=== PATIENT | female | born 1940 | race African-American/Black ===

== ENCOUNTER 2018-03-22 17:30 | Emergency (ER) | payer MEDICARE, OTHER ==
[~2018-03-22] VITALS: Ht 170.2 cm; Wt 85.0 kg
[~2018-03-22 17:30] MED LIST: ACET-3161; AMLO10TA80; ATEN50TA; ATOR40TA70; BENA40TA9; FURO40TA5; GABA-531; RANI300T4; TRAM50TA3
[2018-03-22] MEDS ORDERED: METHOCARBAMOL 500MG TABLET PO ONE (21:15)
[2018-03-22] MEDS ORDERED: ACETAMINOPHEN WITH CODEINE 300/30MG TABLET PO ONE (21:15)
[2018-03-22] MEDS ORDERED: ASPI-1159 PO (22:02)
[2018-03-22] MEDS ORDERED: ATOR20TA65 PO (22:02)
[2018-03-23] MEDS ORDERED: KETOROLAC 60MG/2ML VIAL IM ONE (00:45)
[2018-03-23 01:33] VITALS: BP 141/85
== END 2018-03-23 01:34 | disposition home or self-care (01) ==
LOC: ER 18:00
DX: S00.83XA Contusion of other part of head, initial encounter (principal); S60.211A Contusion of right wrist, initial encounter; S43.401A Unspecified sprain of right shoulder joint, initial encounter; S83.91XA Sprain of unspecified site of right knee, initial encounter; S80.212A Abrasion, left knee, initial encounter; S90.812A Abrasion, left foot, initial encounter; W10.8XXA Fall (on) (from) other stairs and steps, initial encounter; Y93.89 Activity, other specified; Y92.89 Other specified places as the place of occurrence of the external cause; Z88.0 Allergy status to penicillin
CPT/HCPCS: 73030; 73110; 73562; 99284

== ENCOUNTER 2018-07-21 11:50 | Inpatient (IN) | payer MEDICARE, OTHER ==
[~2018-07-21] VITALS: Ht 170.2 cm; Wt 84.5 kg
[~2018-07-21 11:50] MED LIST changes: +ASPI-1159 PO; +ATOR20TA65 PO; -GABA-531; +GABA-531 PO; -TRAM50TA3; +TRAM50TA3 PO
[2018-07-21] MEDS ORDERED: ONDANSETRON HCL 4MG/2ML INJ IV STA (23:46)
[2018-07-21] MEDS ORDERED: MORPHINE SULFATE 4 MG/ML CPJ (NOT FOR IM USE) IV STA (23:46)
[2018-07-21] MEDS ORDERED: SODIUM CHLORIDE 0.9% 1,000 ML IV ONE (23:46)
[2018-07-22 00:36] LABS: BASOPHILS % 1.3 % (0.0-2.0); EOSINOPHILS % 2.5 % (0.0-5.0); HEMATOCRIT. 41.5 % (36.0-48.0); HEMOGLOBIN. 13.8 g/dL (12.0-16.0); MEAN CORPUSCULAR HEMOGLOBIN 30.5 pg (28.0-32.0); MEAN CORPUSCULAR VOLUME 91.9 fL (81.0-99.0); MEAN PLATELET VOLUME 8.8 fl (7.4-10.4); MONOCYTES % 8.6 % (2.0-8.0); NEUTROPHILS % 48.6 % (40.0-76.0); PLATELET 365 x1000/uL (130-400); RED BLOOD CELL COUNT 4.52 mill/uL (4.2-5.4); RED CELL DISTRIBUTION WIDTH 13.8 % (11.6-14.6)
[2018-07-22 00:39] LABS: CLARITY URINE CLOUDY (CLEAR); COLOR URINE YELLOW (YELLOW); KETONES URINE TRACE (NEGATIVE); LEUKOCYTE ESTERASE URINE 3+ (NEGATIVE); NITRITE URINE NEGATIVE (NEGATIVE); OCCULT BLOOD URINE NEGATIVE (NEGATIVE); PROTEIN URINE TRACE (NEGATIVE); SPECIFIC GRAVITY URINE 1.017 (1.005-1.030); UROBILINOGEN URINE 0.2 E.U./dL (0.2-1.0)
[2018-07-22 00:39] LABS: CHLORIDE 104 mEq/L (98-107)
[2018-07-22] MEDS ORDERED: CEFTRIAXONE 1 G PREMIX 50 ML IV ONE (02:00)
[2018-07-22] MEDS: HYDROCODONE/ACETAMINOPHEN 5/325MG TABLET PO PRN ×2 (16:06→22:19)
[2018-07-23] VITALS (14 sets, daily range): BP systolic 122–156; BP diastolic 72–91
[2018-07-23] MEDS: SODIUM CHLORIDE 0.9% 1,000 ML IV SCH ×2 (05:55→17:55)
[2018-07-23 07:09] LABS: CHLORIDE 106 mEq/L (98-107)
[2018-07-23 07:12] LABS: BASOPHILS % 1.4 % (0.0-2.0); EOSINOPHILS % 3.1 % (0.0-5.0); HEMATOCRIT. 37.2 % (36.0-48.0); HEMOGLOBIN. 12.3 g/dL (12.0-16.0); LYMPHOCYTES % 33.3 % (20.0-50.0); MEAN CORPUSCULAR HEMOGLOBIN 30.2 pg (28.0-32.0); MEAN CORPUSCULAR VOLUME 91.6 fL (81.0-99.0); MEAN PLATELET VOLUME 8.7 fl (7.4-10.4); MONOCYTES % 8.1 % (2.0-8.0); NEUTROPHILS % 54.1 % (40.0-76.0); PLATELET 351 x1000/uL (130-400); RED BLOOD CELL COUNT 4.06 mill/uL (4.2-5.4)
[2018-07-23] MEDS: ENOXAPARIN 40MG/0.4ML SYR SUBCUT SCH (08:09)
[2018-07-23] MEDS: HYDROCODONE/ACETAMINOPHEN 5/325MG TABLET PO PRN ×2 (08:09→17:54)
[2018-07-23] MEDS ORDERED: DILTIAZEM HCL 5MG/ML 5ML VIAL IV NR (20:30)
[2018-07-23] MEDS: BENAZEPRIL 10MG TABLET PO SCH (20:54)
[2018-07-23] MEDS: ATENOLOL 50 MG TABLET PO SCH (22:36)
[2018-07-24] VITALS (20 sets, daily range): BP systolic 131–161; BP diastolic 55–83
[2018-07-24] MEDS: SODIUM CHLORIDE 0.9% 1,000 ML IV SCH ×2 (05:02→20:55)
[2018-07-24 05:52] LABS: BASOPHILS % 1.4 % (0.0-2.0); EOSINOPHILS % 3.6 % (0.0-5.0); HEMATOCRIT. 37.1 % (36.0-48.0); HEMOGLOBIN. 12.2 g/dL (12.0-16.0); LYMPHOCYTES % 37.2 % (20.0-50.0); MEAN CORPUSCULAR HEMOGLOBIN 30.3 pg (28.0-32.0); MEAN CORPUSCULAR VOLUME 91.8 fL (81.0-99.0); MONOCYTES % 7.6 % (2.0-8.0); NEUTROPHILS % 50.2 % (40.0-76.0); RED BLOOD CELL COUNT 4.04 mill/uL (4.2-5.4); RED CELL DISTRIBUTION WIDTH 13.6 % (11.6-14.6)
[2018-07-24 05:53] LABS: CHLORIDE 108 mEq/L (98-107)
[2018-07-24 07:58] LABS: MEAN PLATELET VOLUME 8.6 fl (7.4-10.4); PLATELET 314 x1000/uL (130-400)
[2018-07-24] MEDS: ATENOLOL 50 MG TABLET PO SCH (08:56)
[2018-07-24] MEDS: BENAZEPRIL 10MG TABLET PO SCH (08:57)
[2018-07-24] MEDS: ENOXAPARIN 40MG/0.4ML SYR SUBCUT SCH (08:58)
[2018-07-24] MEDS ORDERED: CLONIDINE 0.1MG TABLET PO PRN (09:15)
[2018-07-24] MEDS ORDERED: CLONIDINE 0.2MG TABLET PO PRN (09:15)
[2018-07-24] MEDS ORDERED: POTASSIUM CHLORIDE 20MEQ/PACKET PO NR (09:15)
[2018-07-24] MEDS ORDERED: POTASSIUM CHLORIDE 20MEQ TABLET SR PO SCH (09:30)
[2018-07-24] MEDS: AMLODIPINE 2.5MG TABLET PO SCH ×2 (10:42→20:56)
[2018-07-24 20:41] LABS: *BARBITURATES SCREEN URINE NEGATIVE (NEGATIVE)
[2018-07-24 20:42] LABS: *AMPHETAMINES SCREEN URINE NEGATIVE (NEGATIVE); *BENZODIAZEPINES SCREEN URINE NEGATIVE (NEGATIVE); *COCAINE SCREEN URINE NEGATIVE (NEGATIVE); METHADONE URINE SCREEN NEGATIVE (NEGATIVE); OPIATES URINE SCREEN PRESUMTIVE POSITIVE (NEGATIVE); PHENCYCLIDINE URINE SCREEN NEGATIVE (NEGATIVE)
[2018-07-24 20:43] LABS: CANNABINOID URINE SCREEN NEGATIVE (NEGATIVE)
[2018-07-24] MEDS: METOPROLOL TARTRATE 50MG TABLET PO SCH (20:55)
[2018-07-24] MEDS: TRAMADOL 50MG TABLET PO PRN (21:04)
[2018-07-25] VITALS (7 sets, daily range): BP systolic 118–161; BP diastolic 64–84
[2018-07-25 06:54] LABS: CHLORIDE 107 mEq/L (98-107)
[2018-07-25 07:06] LABS: BASOPHILS % 1.5 % (0.0-2.0); EOSINOPHILS % 3.9 % (0.0-5.0); HEMATOCRIT. 39.2 % (36.0-48.0); HEMOGLOBIN. 12.9 g/dL (12.0-16.0); LYMPHOCYTES % 37.8 % (20.0-50.0); MEAN CORPUSCULAR HEMOGLOBIN 30.3 pg (28.0-32.0); MEAN CORPUSCULAR VOLUME 92.3 fL (81.0-99.0); MONOCYTES % 7.8 % (2.0-8.0); PLATELET 340 x1000/uL (130-400); RED BLOOD CELL COUNT 4.24 mill/uL (4.2-5.4); RED CELL DISTRIBUTION WIDTH 13.8 % (11.6-14.6)
[2018-07-25 07:16] LABS: CREATINE KINASE 51 IU/L (26-192); LDL CHOLESTEROL 140 mg/dL (5-100)
[2018-07-25 07:17] LABS: HDL CHOLESTEROL 59 mg/dL (40-59)
[2018-07-25 07:20] LABS: CREATINE KINASE MB FRACTION 1.2 ng/mL (0.5-3.6)
[2018-07-25] MEDS: TRAMADOL 50MG TABLET PO PRN ×2 (08:41→20:06)
[2018-07-25] MEDS: BENAZEPRIL 10MG TABLET PO SCH (08:42)
[2018-07-25] MEDS: AMLODIPINE 2.5MG TABLET PO SCH ×2 (08:42→20:06)
[2018-07-25] MEDS: METOPROLOL TARTRATE 50MG TABLET PO SCH ×2 (08:42→20:05)
[2018-07-25] MEDS: ENOXAPARIN 40MG/0.4ML SYR SUBCUT SCH (08:43)
[2018-07-25] MEDS ORDERED: METO-539 PO (20:41)
== END 2018-07-25 20:55 | disposition home or self-care (01) | DRG 552 ==
LOC: ER 11:50 → 6EST 07-22 04:28 → EDBEDREQ 07-22 04:30 → EDBEDREQTM 07-22 04:30 → EDRESERV 07-22 05:33 → ENRESERV 07-22 05:33 → CANRESERV 07-22 05:33 → EDBEDREQSVC 07-22 06:27 → EDBEDREQTM 07-22 06:27 → EDBEDREQSVC 07-22 15:36 → ENRESERV 07-22 20:35 → MICUNO 07-23 20:12 → MICUSO 07-24 07:00 → 7WST 07-24 18:28
PROVIDERS: ADMIT Internal Medicine; ATTEND Internal Medicine
DX: M48.061 Spinal stenosis, lumbar region without neurogenic claudication (principal); N39.0 Urinary tract infection, site not specified; I10 Essential (primary) hypertension; E78.00 Pure hypercholesterolemia, unspecified; E78.5 Hyperlipidemia, unspecified; G62.9 Polyneuropathy, unspecified; R73.9 Hyperglycemia, unspecified; G89.29 Other chronic pain; K21.9 Gastro-esophageal reflux disease without esophagitis; M47.816 Spondylosis without myelopathy or radiculopathy, lumbar region; Z88.0 Allergy status to penicillin; Z91.018 Allergy to other foods; R00.0 Tachycardia, unspecified; T39.8X5A Adverse effect of other nonopioid analgesics and antipyretics, not elsewhere classified, initial encounter; Y92.230 Patient room in hospital as the place of occurrence of the external cause
CPT/HCPCS: 36415; 71045; 72148; 74176; 80048; 80061; 80305; 82550; 82553; 82962; 83605; 83735; 83880; 84443; 84484; 85379; 93005; 93306; 93970; 96365; 96366; 96375; 97116; 97162; 99284; 99285; C1893; J0696; J1650; J2270; J2405; J3490; J7030

== ENCOUNTER 2019-03-01 22:56 | Emergency (ER) | payer OTHER ==
[~2019-03-01] VITALS: Ht 170.2 cm; Wt 80.0 kg
[~2019-03-01 22:56] MED LIST changes: -ASPI-1159 PO; +ASPI-1393 PO; -ATEN50TA; -ATOR40TA70; +METO-539 PO
[2019-03-01 23:56] VITALS: BP 144/76
[2019-03-02] MEDS ORDERED: TRAMADOL 50MG TABLET PO ONE
== END 2019-03-02 00:41 | disposition home or self-care (01) ==
LOC: ER 22:56
DX: M54.5 Low back pain (principal); M25.552 Pain in left hip; E78.00 Pure hypercholesterolemia, unspecified; I10 Essential (primary) hypertension; Z79.899 Other long term (current) drug therapy; Z88.0 Allergy status to penicillin; Z91.011 Allergy to milk products
CPT/HCPCS: 99283

== ENCOUNTER 2023-07-19 05:25 | Inpatient (IN) | payer OTHER ==
[~2023-07-19] VITALS: Ht 170.2 cm; Wt 67.6 kg
[~2023-07-19 05:25] MED LIST changes: -ASPI-1393 PO; +ASPI-1497 PO; -BENA40TA9; +BENA40TA91; -GABA-531 PO; +GABA-532 PO
[2023-07-19] MEDS: ASPIRIN 81MG TABLET PO ONE (05:45)
[2023-07-19 05:57] LABS: BASOPHILS % 0.9 % (0.0-2.0); DIFFERENTIAL COMMENT 0; EOSINOPHILS % 0.9 % (0.0-5.0); HEMATOCRIT. 37.1 % (36.0-48.0); HEMOGLOBIN. 12.3 g/dL (12.0-16.0); LYMPHOCYTES % 26.6 % (20.0-50.0); MEAN CORPUSCULAR HEMOGLOBIN 30.5 pg (28.0-32.0); MEAN CORPUSCULAR HGB CONC 33.2 g/dL (31.0-37.0); MEAN CORPUSCULAR VOLUME 91.9 fL (81.0-99.0); MEAN PLATELET VOLUME 9.4 fl (7.4-10.4); MONOCYTES % 7.4 % (2.0-8.0); NEUTROPHILS % 64.2 % (40.0-76.0); PLATELET 318 x1000/uL (130-400); RED BLOOD CELL COUNT 4.04 mill/uL (4.2-5.4); RED CELL DISTRIBUTION WIDTH 14.6 % (11.6-14.6); WHITE BLOOD COUNT 5.7 x1000/uL (4.5-11.0)
[2023-07-19 06:28] LABS: ALANINE AMINOTRANSFERASE 11 IU/L (10-49); ALBUMIN 3.9 g/dL (3.2-4.8); ASPARTATE AMINOTRANSFERASE 26 IU/L (<34); BILIRUBIN TOTAL 0.7 mg/dL (0.1-1.0); CALCIUM 9.2 mg/dL (8.7-10.4); CARBON DIOXIDE 24 mEq/L (21-32); CHLORIDE 108 mEq/L (98-107); CREATININE 0.8 mg/dL (0.6-1.0); GLUCOSE 111 mg/dL (70-105); POTASSIUM 4.2 mEq/L (3.5-5.1); PROTEIN TOTAL 7.6 g/dL (6.0-8.3); SODIUM 141 mEq/L (136-145); TROPONIN I HIGH SENSITIVITY 22 ng/L (3.0-34); UREA NITROGEN BLOOD 13 mg/dL (9-23)
[2023-07-19] MEDS: DILTIAZEM HCL 5MG/ML 5ML VIAL IV ONE (07:04)
[2023-07-19] MEDS: DILTIAZEM HCL 90MG TABLET PO ONE (10:14)
[2023-07-19] MEDS: ENOXAPARIN 80MG/0.8ML SYR SUBCUT ONE (10:39)
[2023-07-19 15:13] VITALS: BP 125/82; PULSE 103; RESP 18; TEMP 98.5
[2023-07-19 16:00] VITALS: BP 118/88; PULSE 105; RESP 22; TEMP 98.5
[2023-07-19 20:00] VITALS: BP 118/86; PULSE 120; RESP 18; TEMP 98.2
[2023-07-20] VITALS: BP 131/90; PULSE 121; RESP 20; TEMP 98
[2023-07-20 04:00] VITALS: BP 124/81; PULSE 113; RESP 17; TEMP 98.6
[2023-07-20] MEDS ORDERED: ONDANSETRON HCL 4MG/2ML INJ IV PRN (05:45)
[2023-07-20] MEDS ORDERED: ACETAMINOPHEN 325MG TABLET PO PRN (05:45)
[2023-07-20] MEDS ORDERED: CLONIDINE 0.1MG TABLET PO PRN (05:45)
[2023-07-20] MEDS: DILTIAZEM HCL 30MG TABLET PO SCH (06:33)
[2023-07-20 08:00] VITALS: BP 119/89; PULSE 122; RESP 14; TEMP 97.9
[2023-07-20] MEDS: ASPIRIN 81MG EC TABLET PO SCH (08:26)
[2023-07-20] MEDS: METOPROLOL TARTRATE 50MG TABLET PO SCH (08:26)
[2023-07-20] MEDS: FUROSEMIDE 40MG TABLET PO SCH (08:26)
[2023-07-20] MEDS: BENAZEPRIL 10MG TABLET PO SCH (08:27)
[2023-07-20] MEDS: FAMOTIDINE 20MG TABLET PO SCH (08:27)
[2023-07-20] MEDS: GABAPENTIN 300MG CAPSULE PO SCH (08:27)
[2023-07-20] MEDS: ENOXAPARIN 30MG/0.3ML SYR SUBCUT SCH (08:28)
[2023-07-20 08:46] LABS: HEMATOCRIT 38.1 % (36.0-48.0); HEMOGLOBIN 12.2 g/dL (12.0-16.0); MEAN CORPUSCULAR HEMOGLOBIN 30.4 pg (28.0-32.0); MEAN CORPUSCULAR VOLUME 95.1 fL (81.0-99.0); PLATELET 242 x1000/uL (130-400); RED BLOOD CELL COUNT 4.01 mill/uL (4.2-5.4); WHITE BLOOD COUNT 4.2 x1000/uL (4.5-11.0)
[2023-07-20 09:01] LABS: ALANINE AMINOTRANSFERASE 8 IU/L (10-49); ALBUMIN 3.8 g/dL (3.2-4.8); ASPARTATE AMINOTRANSFERASE 24 IU/L (<34); BILIRUBIN TOTAL 0.7 mg/dL (0.1-1.0); CALCIUM 9.1 mg/dL (8.7-10.4); CARBON DIOXIDE 25 mEq/L (21-32); CHLORIDE 106 mEq/L (98-107); CREATININE 0.7 mg/dL (0.6-1.0); GLUCOSE 72 mg/dL (70-105); PROTEIN TOTAL 7.4 g/dL (6.0-8.3); SODIUM 140 mEq/L (136-145); UREA NITROGEN BLOOD 9 mg/dL (9-23)
[2023-07-20] MEDS: METOPROLOL TARTRATE 25MG TABLET PO NR (10:45)
[2023-07-20] MEDS: ENOXAPARIN 40MG/0.4ML SYR SUBCUT NR (11:58)
[2023-07-20 12:00] VITALS: BP 121/95; PULSE 106; RESP 16; TEMP 97.6
[2023-07-20 12:26] LABS: CLARITY URINE CLEAR (CLEAR); COLOR URINE YELLOW (YELLOW); GLUCOSE URINE NEGATIVE (NEGATIVE); KETONES URINE NEGATIVE (NEGATIVE); LEUKOCYTE ESTERASE URINE NEGATIVE (NEGATIVE); NITRITE URINE NEGATIVE (NEGATIVE); OCCULT BLOOD URINE NEGATIVE (NEGATIVE); PH URINE 5.5 (4.5-8.0); PROTEIN URINE NEGATIVE (NEGATIVE); UROBILINOGEN URINE 0.2 E.U./dL (0.2-1.0)
[2023-07-20 12:32] LABS: INR 1.1; PROTHROMBIN TIME 12.4 sec (9.6-11.0)
[2023-07-20 16:00] VITALS: BP 123/88; PULSE 111; RESP 25; TEMP 97.6
[2023-07-20 20:00] VITALS: BP 112/88; PULSE 113; RESP 21; TEMP 97.8
[2023-07-20] MEDS: ATORVASTATIN CALCIUM 20MG TABLET PO SCH (21:00)
[2023-07-20] MEDS: ENOXAPARIN 80MG/0.8ML SYR SUBCUT SCH (23:00)
[2023-07-21] VITALS (7 sets, daily range): BP systolic 119–148; BP diastolic 92–108; PULSE 94–137; RESP 18–28; TEMP 97.5–98.7
[2023-07-21] MEDS: METOPROLOL TARTRATE 50MG TABLET PO NR (10:30)
[2023-07-21] MEDS: DIGOXIN 500MCG/2ML AMP IV SCH (11:52)
[2023-07-21] MEDS: TRAMADOL 50MG TABLET PO PRN (11:52)
[2023-07-21] MEDS ORDERED: NALOXONE HCL 0.4MG/ML VIAL IV PRN (12:45)
[2023-07-21] MEDS: DIGOXIN 125MCG TABLET PO SCH (17:26)
[2023-07-21] MEDS: MEMANTINE HCL 5MG TABLET PO SCH (18:57)
[2023-07-22 00:15] VITALS: BP 132/89; PULSE 84; RESP 18; TEMP 97.4
[2023-07-22 04:00] VITALS: BP 138/106; PULSE 90; RESP 18; TEMP 98.1
[2023-07-22 08:00] VITALS: BP 133/92; PULSE 119; RESP 25; TEMP 98.3
[2023-07-22 12:00] VITALS: BP 128/95; PULSE 104; RESP 25; TEMP 97.5
[2023-07-22] MEDS ORDERED: ATOR20TA PO (12:33)
[2023-07-22] MEDS ORDERED: FURO40TA5 PO (12:33)
[2023-07-22] MEDS ORDERED: MEMA5TAB7 PO (12:33)
[2023-07-22] MEDS ORDERED: ASPI-1406 PO (12:33)
[2023-07-22] MEDS ORDERED: DIGO-34 PO (12:33)
[2023-07-22] MEDS ORDERED: APIX5TAB MT (12:33)
[2023-07-22] MEDS ORDERED: BENA10TA74 PO (12:33)
[2023-07-22] MEDS ORDERED: METO-539 MT (12:35)
[2023-07-22 13:01] VITALS: BP 128/95; PULSE 108; TEMP 97.2; O2SAT 97
[2023-07-23] MEDS ORDERED: LISINOPRIL 20MG TABLET PO SCH (09:00)
[2023-07-26] MEDS ORDERED: NITR-87 MT (13:37)
== END 2023-07-22 16:38 | disposition home or self-care (01) | DRG 308 ==
LOC: ER 05:25 → 3WST 12:48 → EDBEDREQ 12:56 → EDBEDREQTM 12:56 → ER 14:30
PROVIDERS: ADMIT Internal Medicine; ATTEND Internal Medicine
DX: I48.91 Unspecified atrial fibrillation (principal); I50.23 Acute on chronic systolic (congestive) heart failure; J98.11 Atelectasis; I11.0 Hypertensive heart disease with heart failure; E78.00 Pure hypercholesterolemia, unspecified; Z88.0 Allergy status to penicillin; W18.11XA Fall from or off toilet without subsequent striking against object, initial encounter; Y93.89 Activity, other specified; Y92.89 Other specified places as the place of occurrence of the external cause; Y99.8 Other external cause status
CPT/HCPCS: 36415; 71045; 80053; 81003; 83880; 84443; 84484; 85025; 85027; 93005; 93306; 97162; 99291; J1160; J1650; J3490